=== PATIENT | female | born 1970 | race Caucasian/White ===

== ENCOUNTER 2016-07-27 10:19 | Emergency (ER) | payer OTHER ==
[2016-07-27 10:33] VITALS: BP 152/98; PULSE 98; RESP 18; TEMP 98.4; O2SAT 97
--- NOTE | 2016-07-27 10:42 | CPEKG ---
Heart Rate: 81 RR Interval: 741 P-R Interval: 156 QRSD Interval: 86 QT Interval: 380 QTC Interval: 441 P Lyn[place]: 61 QRS [place]: 9 T Wave [place]: 2 EKG Severity - NORMAL ECG - EKG Impression: SINUS RHYTHM Electronically Signed By: Bree Hebert 27-Jul-2016 15:10:41
--- NOTE | 2016-07-27 10:45 | UCPHY ---
H & P Patient Type: Established Chief Complaint Nursing Narrative: cough/loss of voice starting 7 weeks ago. was treated with prednisone, tessalon pearls, and antibiotics 2 weeks ago and felt better, but now feels worse. reports low grade fevers and new chest pressure/pain. HPI/ROS: CHIEF COMPLAINT: Cough. HISTORY OF PRESENT ILLNESS: The patient is a 45-year-old female who presents with 7 weeks of cold symptoms. She initially had a sore throat and mild cough, saw health care provider and was strep negative. Her cough then worsened and she lost her voice. She visited her PCP 4 weeks ago and was told it could be croup and was probably viral. She visited [facility] two weeks ago and was given antibiotics and a steroid. She finished the antibiotics a week ago. She has also tried codeine cough syrup which has helped slightly. Her cough is dry and has been constant. No tussive emesis. It sometimes keeps her awake at night. She denies fever, shortness of breath, chest pain, ear pain. REVIEW OF SYSTEMS: A ten point review of systems was performed and is negative with the exception of the items mentioned in the HPI. Source: Patient Exam Limitations: No limitations - Personal History LMP (Females 10-55): 1-7 Days Ago Current Tetanus Diphtheria and Acellular Pertussis (TDAP): Yes - Medical/Surgical History Hx Asthma: No Hx Chronic Respiratory Disease: No Hx Diabetes: No Hx Cardiac Disease: No Hx Renal Disease: No Hx Cirrhosis: No Hx Alcoholism: No Hx HIV/AIDS: No Hx Splenectomy or Spleen Trauma: No Other PMH: ,Ortho knee surg, [employer] surgery , Anxiety. - Family History Significant Family History: No pertinent family hx - Social History Smoking Status: Never smoked Additional Social History: She is . - Physical Exam Exam: General Appearance: Alert. Vital signs reviewed. Blood pressure 152/98. Eyes: Pupils equal and round, no conjunctival injection, no discharge. Anicteric. ENT, Mouth: Mucous membranes are moist, no oropharyngeal erythema or edema. Neck: No lymphadenopathy, supple. Respiratory: Lungs are clear to auscultation; no wheezes, rales, or rhonchi. Cardiovascular: Regular rate and rhythm; no murmur, rub, or gallop. Gastrointestinal: Abdomen is soft and nontender, no masses or organomegaly, bowel sounds normal. Skin: Warm and dry, no rashes on exposed skin, normal color. Back: Nontender to palpation over the thoracolumbar spine. No CVAT. Extremities: No lower extremity edema, no calf tenderness or swelling. Neurological: Alert and oriented. Moving all four extremities easily and equally. Psychiatric: Normal affect. Constitutional: Initial Vital Signs Temperature (C) 36.9 C 07/27/16 10:30 Heart Rate 98 07/27/16 10:30 Respiratory Rate 18 07/27/16 10:30 Blood Pressure 152/98 H 07/27/16 10:30 O2 Sat (%) 97 07/27/16 10:30 O2 Delivery Mode Room Air Allergies/Adverse Reactions: No Known Allergies Allergy (Unverified 07/27/16 10:29) Home Medications: Medication Instructions Recorded AZITHROMYCIN [Z-PACK] 250 mg PO DAILY #6 tab 07/27/16 Albuterol [Proventil Inhaler HFA 1 - 2 puffs IH Q4 #1 mdi 07/27/16 (*)] Control 07/27/16 HYDROcodone/HOMATROPINE HYCODA 1 tsp PO Q4-6PRN PRN #120 ml 07/27/16 [Hycodan Syrup (*)] Lexapro 07/27/16 Medical Decision Making - Diagnostics EKG Interpretation: The 12 lead EKG was interpreted by myself. See hard copy and/or "tracemaster" electronic copy for interpretation. Sinus rhythm rate 81, no ischemic changes. Imaging Results: CXR reviewed in PACS. No infiltrate. Radiology report suggests probably mild bronchitis. ED Course/Re-evaluation: 45-year-old female presents with cough that began 7 weeks ago. She initially had a sore throat too but was strep negative. She has seen both her PCP and [facility] urgent care for her symptoms. She has tried Tessalon Pearls, Keflex, and codeine cough syrup but her symptoms are still present. Her exam is normal. CXR shows possible mild bronchitis. No signs of pneumonia on CXR. No fever or hypoxia. Pertussis is a possibility, along with bronchitis. Prescribing zpak--with thought that this could be pertussis. She understands that abx will not alter her symptoms, but might decrease contagion risk. Will try vicodin for cough. Suggest albuterol MDI for bronchitis. BP high today. She will have it rechecked by PCP. Departure - Departure Disposition: Home, Routine, Self-Care Clinical Impression: Bronchitis Instructions: Acute Bronchitis (ED), Pertussis (ED) Additional Instructions: Take Azithromycin as prescribed. If you have pertussis (and I don't know for sure that you do) this is the treatment. Use the inhaler as instructed when needed. Try using it four times daily during htis illness. Take the hycodan as prescribed for cough. Drink plenty of fluids and be sure to get rest. Follow up with your primary care provider for reevaluation of symptoms that are not improving. Return for any serious worsening of condition. Referrals: Chelsea Franz MD [Primary Care Provider] - As per Instructions Prescriptions: Albuterol [Proventil Inhaler HFA (*)] 1 - 2 puffs IH Q4 #1 mdi AZITHROMYCIN [Z-PACK] 250 mg PO DAILY #6 tab HYDROcodone/HOMATROPINE HYCODA [Hycodan Syrup (*)] 1 tsp PO Q4-6PRN PRN #120 ml PRN Reason: Cough, Moderate - PQRS PQRS Measurement: Does not apply Report Scribed for: Bree Hebert Report Scribed by: Teo Bland Date of Report: 07/27/16 Time of Report: 11:12 Physician Review and Approval Statement: 07/27/16 10:45 Portions of this note were transcribed by the biomedical equipment tech. I, Dr. Bree Hebert, personally performed the history, physical exam, and medical decision- making; and confirmed the accuracy of the information in the transcribed note.
== END 2016-07-27 11:45 | disposition home or self-care (01) ==
LOC: CED 10:19
DX: J20.9 Acute bronchitis, unspecified (principal)
CPT/HCPCS: 71020-PO; G0463-PO